=== PATIENT | female | born 1955 | race Caucasian/White ===

== ENCOUNTER 2016-10-12 16:17 | Emergency (ER) | payer OTHER ==
--- NOTE | 2016-10-12 16:33 | UC ---
Respiratory Complaint HPI - HPI Summary HPI Summary: 1 week of cough, b/l ear pain and congestion, began wheezing last night, no fevers - History of Current Complaint Chief Complaint: UCRespiratory Stated Complaint: COUGH Time Seen by Provider: 10/12/16 16:23 Hx Obtained From: Patient ?: No Onset/Duration: Lasting Weeks - 1, Still Present, Worse Since - last night Timing: Constant Severity Initially: Mild Severity Currently: Moderate Character: Cough: Productive Aggravating Factors: Deep Breaths, Recumbent Position Alleviating Factors: Nothing Associated Signs And Symptoms: Positive: URI, Nasal Congestion - Allergies/Home Medications Allergies/Adverse Reactions: Allergies Allergy/AdvReac Type Severity Reaction Status Date / Time Latex Allergy Rash Verified 10/12/16 16:45 PMH/Surg Hx/FS Hx/Imm Hx Previously Healthy: Yes Cancer History Of: Denies: Breast Cancer - Surgical History Surgical History: Yes Surgery Procedure, Year, and Place: tubal ligation. cyst removed from right hand third finger Other Surgical History: B/l ankle fractures with plate and screws left ankle - Family History Known Family History: Positive: Cardiac Disease, Hypertension - Social History Occupation: Disabled Lives: With Family Alcohol Use: None Substance Use Type: None Smoking Status (MU): Current Every Day Smoker Type: Cigarettes Amount Used/How Often: PACK A DAY Length of Time of Smoking/Using Tobacco: 20 Have You Smoked in the Last Year: Yes Household Exposure Type: Cigarettes Cessation Counseling: Counseled 3+Min - 10 Min - Immunization History Most Recent Influenza Vaccination: 2013 Most Recent Tetanus Shot: within last ten yrs Most Recent Pneumonia Vaccination: refuses Review of Systems Constitutional: Negative Skin: Negative Eyes: Negative ENT: Sore Throat, Ear Ache, Nasal Discharge Respiratory: Cough Cardiovascular: Negative Gastrointestinal: Negative Genitourinary: Negative Motor: Negative Neurovascular: Negative Musculoskeletal: Negative Neurological: Negative Psychological: Negative All Other Systems Reviewed And Are Negative: Yes Physical Exam Triage Information Reviewed: Yes Appearance: No Pain Distress, Well-Nourished, Ill-Appearing - appears older than stated age Vital Signs Reviewed: Yes Eye Exam: Normal Eyes: Positive: Conjunctiva Clear ENT Exam: Other ENT: Positive: Normal ENT inspection, Hearing grossly normal, Pharynx normal, Nasal congestion, Nasal drainage, TMs normal. Negative: Tonsillar swelling, Tonsillar exudate, Trismus, Muffled/hoarse voice Neck exam: Normal Neck: Positive: Supple, Nontender, No Lymphadenopathy Respiratory Exam: Normal, Other Respiratory: Positive: Chest non-tender, No respiratory distress, No accessory muscle use, Wheezing Cardiovascular Exam: Normal Cardiovascular: Positive: RRR, No Murmur, Pulses Normal, Brisk Capillary Refill Musculoskeletal Exam: Normal Musculoskeletal: Positive: Strength Intact, ROM Intact, No Edema Neurological Exam: Normal Neurological: Positive: Alert, Muscle Tone Normal Psychological Exam: Normal Psychological: Positive: Normal Response To Family, Age Appropriate Behavior Skin Exam: Normal Respiratory Course/Dx - Course Course Of Treatment: nicotine cesastion information, albuterol, zithromax, increase fluids, follow with PCP re-check prn - Differential Dx/Diagnosis Differential Diagnosis/HQI/PQRI: Asthma, Bronchitis, Laryngitis, Lower Resp Infection, Sinusitis Provider Diagnoses: Bronchitis with Bronchospasm, nicotine dependant Discharge - Discharge Plan Condition: Stable Disposition: HOME Prescriptions: Albuterol HFA INHALER* [Ventolin HFA Inhaler*] 2 puff INH Q4H PRN #1 mdi PRN Reason: cough/ wheeze Azithromycin TAB* [Zithromax TAB (Z-PAN) 250 mg #6 tabs] 2 tab PO .TODAY, THEN 1 DAILY #1 pan Patient Education Materials: Antitussives (By mouth), How to Stop Smoking (ED) , Cigarette Smoking and Your Health (GEN), How to Use a Metered-Dose Inhaler (ED ), Acute Bronchitis (ED), Bronchospasm (ED) Referrals: Jersey North MD [Primary Care Provider] - If Needed
[2016-10-12 16:46] VITALS: BP 140/76
== END 2016-10-12 16:45 | disposition home or self-care (01) ==
LOC: UCEAST 16:17
DX: J20.9 Acute bronchitis, unspecified (principal); F17.210 Nicotine dependence, cigarettes, uncomplicated
CPT/HCPCS: 99212; G0463

== ENCOUNTER 2018-02-26 13:47 | Emergency (ER) | payer OTHER ==
[2018-02-26 14:36] VITALS: BP 127/73
--- NOTE | 2018-02-26 14:52 | UC ---
Throat Pain/Nasal Remy HPI - HPI Summary HPI Summary: 62 yo female presents with cough, feeling her chest "wheeze", sinus pain/ pressure/congestion, and b/l ear fullness for the last 5 days. Has been taking OTC cold and flu medicine with no relief. Denies fever, chills, sore throat, SOB , abdominal pain, n/v. She is still smoking daily - History of Current Complaint Chief Complaint: UCRespiratory Stated Complaint: ALLERGIES Time Seen by Provider: 02/26/18 14:52 Hx Obtained From: Patient Hx Last Menstrual Period: na Onset/Duration: Gradual Onset Severity: Moderate Pain Intensity: 5 Pain Scale Used: 0-10 Numeric Cough: Nonproductive - Allergies/Home Medications Allergies/Adverse Reactions: Allergies Allergy/AdvReac Type Severity Reaction Status Date / Time latex Allergy Intermediate Rash Verified 02/26/18 14:36 PMH/Surg Hx/FS Hx/Imm Hx - Additional Past Medical History Additional PMH: None Previously Healthy: Yes - Surgical History Surgical History: Yes Surgery Procedure, Year, and Place: tubal ligation. cyst removed from right hand third finger Other Surgical History: B/l ankle fractures with plate and screws left ankle - Family History Known Family History: Positive: Cardiac Disease, Hypertension - Social History Occupation: Employed Full-time Lives: Alone Alcohol Use: None Substance Use Type: None Smoking Status (MU): Current Every Day Smoker Type: Cigarettes Amount Used/How Often: PACK A DAY Length of Time of Smoking/Using Tobacco: 20 Have You Smoked in the Last Year: Yes Household Exposure Type: Cigarettes - Immunization History Most Recent Influenza Vaccination: 2013 Most Recent Tetanus Shot: within last ten yrs Most Recent Pneumonia Vaccination: refuses Review of Systems Constitutional: Negative Skin: Negative Eyes: Negative ENT: Ear Ache, Nasal Discharge, Sinus Congestion, Sinus Pain/Tenderness Respiratory: Cough Cardiovascular: Negative Gastrointestinal: Negative Neurovascular: Negative Neurological: Negative Psychological: Negative All Other Systems Reviewed And Are Negative: Yes Physical Exam - Summary Physical Exam Summary: GENERAL: NAD. WDWN. No pain distress. SKIN: No rashes, sores, lesions, or open wounds. HEENT: Head: AT/NC Eyes: EOM intact. Conjunctiva clear without inflammation or discharge. Ears: Hearing grossly normal. TMs intact, no bulging, erythema, or edema. Nose: Nasal mucosa mildly swollen and erythematous with yellow/ clear discharge. TTP maxillary and frontal sinus. Throat: Posterior oropharynx without exudates, erythema, or tonsillar enlargement. Uvula midline. NECK: Supple. Nontender. No lymphadenopathy. CHEST: Mild wheezing throughout. No r/r. No accessory muscle use. Breathing comfortably and in no distress. CV: RRR. Without m/r/g. Pulses intact. Brisk cap refill. NEURO: Alert. CN II-XII grossly intact. PSYCH: Age appropriate behavior. Triage Information Reviewed: Yes Vital Signs: Initial Vital Signs Temp 98.3 F 02/26/18 14:31 Pulse 67 02/26/18 14:31 Resp 18 02/26/18 14:31 BP 127/73 02/26/18 14:31 Pulse Ox 98 02/26/18 14:31 Throat Pain/Nasal Course/Dx - Course Course Of Treatment: Sinusitis. Bronchitis - Differential Dx/Diagnosis Provider Diagnoses: sinusitis. Bronchitis Discharge - Sign-Out/Discharge Documenting (check all that apply): Discharge/Admit/Transfer - Discharge Plan Condition: Stable Disposition: HOME Prescriptions: Albuterol HFA INHALER* [Ventolin HFA Inhaler*] 1 puff INH Q6H PRN #1 mdi PRN Reason: Wheezing DOXYcycline CAP(*) [DOXYcycline 100MG CAP(*)] 100 mg PO BID #20 cap Patient Education Materials: Sinusitis (ED), Acute Bronchitis (ED) Referrals: Jersey North MD [Primary Care Provider] - Additional Instructions: If you develop a fever, shortness of breath, chest pain, new or worsening symptoms - please call your PCP or go to the ED. - Billing Disposition and Condition Condition: STABLE Disposition: HOME
== END 2018-02-26 15:35 | disposition home or self-care (01) ==
LOC: UCEAST 13:47
DX: J32.9 Chronic sinusitis, unspecified (principal); J40 Bronchitis, not specified as acute or chronic; Z91.040 Latex allergy status; Z82.49 Family history of ischemic heart disease and other diseases of the circulatory system; F17.210 Nicotine dependence, cigarettes, uncomplicated
CPT/HCPCS: 99212; G0463

== ENCOUNTER 2018-09-11 11:40 | Day surgery (SDC) | payer OTHER ==
--- NOTE | 2018-09-03 07:02 | HP ---
PREOPERATIVE HISTORY AND PHYSICAL: DATE OF ADMISSION: 09/11/18 - OR [facility] DATE OF OFFICE VISIT/ENCOUNTER: 08/27/18 ATTENDING SURGEON: Dorinda Smith MD * (DICTATED BY GARCÍA CASTILLO) PROCEDURE: Excision cyst, left thumb. CHIEF COMPLAINT: Cyst on left thumb. HISTORY OF PRESENT ILLNESS: This is a 63-year-old female who complains of a lump on the volar aspect of her left thumb. It has become increasingly bothersome. She noticed it a couple of months ago, but it has become increasingly larger. 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 She does not have any associated numbness or tingling. She would like to have the mass removed. She denies any known injury. PAST MEDICAL HISTORY: Unremarkable. PAST SURGICAL HISTORY: 1. Bilateral ankles. 2. Tubal ligation. CURRENT MEDICATIONS: Multivitamin daily. ALLERGIES: LATEX. No known drug allergies. FAMILY MEDICAL HISTORY: Positive for breast cancer, heart disease and diabetes. SOCIAL HISTORY: The patient is not working. She is a current smoker. She reports generally smoking 8 cigarettes per day. She has smoked on and off for several years but started up again with some regularity 3 months ago. She denies recreational drug use and does not drink alcohol. REVIEW OF SYSTEMS: Negative for general, cephalic, cardiovascular, respiratory , GI, , other musculoskeletal, integumentary, endocrine, neurologic, hematologic symptoms. Infectious disease is negative for MRSA, hepatitis C, HIV. PHYSICAL EXAMINATION GENERAL: Well-developed, well-nourished 63-year-old female, in no acute distress. VITAL SIGNS: Height 5 feet 6 inches, weight 155 pounds, pulse rate 64, blood pressure 136/85. HEENT: Normocephalic, atraumatic. Pupils are equal, round, and reactive to light and accommodation. Extraocular movements are intact. NECK: Supple. No palpable lymph nodes. Throat is clear. PULMONARY: Lungs are clear to auscultation bilaterally. No wheezes, rales, or rhonchi. CARDIOVASCULAR: Regular rate and rhythm. S1, S2. No murmurs, rubs or gallops. No edema. ABDOMEN: Positive bowel sounds, soft, nontender. NEUROLOGIC: Alert and oriented x3. Cranial nerves II through XII are intact. Sensation is intact to light touch. MUSCULOSKELETAL: On exam of the left thumb, there is cystic mass on the volar aspect of the left thumb. It is firm, subcutaneous and mobile. Negative Tinel' s over the mass. She has good flexion of the thumb. Skin is intact. Neurovascular function is intact. IMAGING STUDIES: X-rays, AP and lateral and oblique of the left thumb shows some mild to moderate degenerative changes, but otherwise no mass effect is visible on the bone. IMPRESSION: Left thumb mass. PLAN: The patient is scheduled to undergo an excision cyst, left thumb with Dr. Smith on 09/11/18. She will return to the office in 10 to 14 days postop for followup and suture removal. A prescription for Ultracet was e-scribed to the patient's pharmacy for postoperative pain management. GARCÍA CASTILLO [id number]/[facility] #: [id number] MTDBerenice
[~2018-09-11 11:40] MED LIST: Buffered Lidocaine 0.9% SYRIN* 5 ML/SYR SYRINGE INTRADERM ONE; Lactated Ringers 1000 ML Bag* 1,000 ML IV SCH
[2018-09-11] MEDS ORDERED: Lidocaine 1% INJ* 10 MG/ML 30 ML SDV ONE (13:44)
[2018-09-11 14:18] VITALS: BP 127/73
--- NOTE | 2018-09-12 10:31 | OP ---
DATE OF OPERATION: 09/11/18 [facility] DATE OF : 59 SURGEON: Dorinda Smith MD HIV NURSE: GARCÍA Grant ANESTHESIA: Local. PRE-OP DIAGNOSIS: Left thumb mass. POST-OP DIAGNOSIS: Left thumb mass. OPERATIVE PROCEDURE: Removal of left thumb mass. INDICATIONS: Iris is a 63-year-old woman with 3 painful masses on her left thumb. She presents for removal. ESTIMATED BLOOD LOSS: Zero. TOURNIQUET TIME: About 15 minutes. DESCRIPTION OF PROCEDURE: The patient was brought to the operating room, was given a local anesthetic as a digital block to the left thumb. Skin of her left hand and forearm was prepped and draped in the usual sterile fashion. The hand and forearm were exsanguinated and the tourniquet elevated to 250 mmHg. A longitudinal incision was made centered over the mass and we dissected through the subcutaneous tissue. The masses were adherent to the skin and to the underlying neurovascular bundle. The neurovascular bundle was carefully dissected away from the mass and it was also dissected away from the skin and then removed in its entirety and sent for pathology. There were 2 separate masses, but they appeared to be the same tissue. The wound was irrigated and the skin edges reapproximated with 4-0 nylon suture. The wound was dressed with Xeroform, 4x4, Webril, and Coban. The patient tolerated the procedure well and was brought to the recovery room in good condition. [id number]/[facility] #: [id number] [facility]
== END 2018-09-11 14:30 | disposition home or self-care (01) ==
LOC: OREAST 11:40
PROVIDERS: ATTEND Orthopaedic Surgery
DX: M06.342 Rheumatoid nodule, left hand (principal); F17.210 Nicotine dependence, cigarettes, uncomplicated
CPT/HCPCS: 88305